=== PATIENT | female | born 1975 | race Caucasian/White ===

== ENCOUNTER 2018-02-17 11:32 | Emergency (ER) | payer OTHER, MEDICAID, SELFPAY ==
[2018-02-17 11:41] VITALS: BP 126/72; PULSE 75; RESP 16; TEMP 36.3; O2SAT 100; BMI 30.9
--- NOTE | 2018-02-17 12:02 | ED_ITS ---
HPI - Skin/Abscess/Foreign Bdy General Chief complaint: Skin/Abscess/Foreign Body Stated complaint: tooth pain Time Seen by Provider: 02/17/18 11:47 History of Present Illness HPI narrative: HPI 42-year-old female with poor dentition presents for evaluation of a few days of predominantly left mandibular dental pain that is without fevers, chills, neck stiffness, difficulty swallowing, headache, changes in vision or hearing. Patient reports that she has dental care scheduled in approximately 10 days to have her teeth extracted. M/S/F/SocHx notable for: please see HPI; remainder reviewed with patient and in chart. ROS: Negative constitutional, eye, cardiovascular, pulmonary, GI, , MSK, skin , neurologic, psychiatric, endocrine unless noted in the HPI. Exam Gen: Pleasant, non-toxic appearing, resting comfortably HEENT: NC, AT, PEERL, EOMI. Mouth: absent maxillary teeth with denture in place, mandibular job with molars and premolars absent, but appears to be the left first bicuspid is partially fractured, inferior gumline without swelling or market tenderness, floor of the mouth soft without swelling or tongue elevation, no peritonsilar swelling bilaterally, uvula midline, moist mucus membranes without lesions, tongue without plaques or lesions,gumline without significant ulcerations, no bleeding , no marked halitosis. Neck: Supple with a full range of motion, no swelling, no difficulty swallowing. Resp: Clear to auscultation bilaterally, normal work of breathing, no accessory muscle usage. Card: Regular rate and rhythm with no murmurs, rubs, or gallops, extremities warm and well perfused. GI: non-distended MSK: No visible deformities, strength and tone without visually appreciable deficit. Skin: Normal color with no visible lesions. Neuro: AO x 3, no facial asymmetry, vision and hearing WNL. Psych: Mood and affect appropriate. MDM Previous chart, nursing note, and vitals reviewed. A: 42-year-old female with poor dentition presents for evaluation of a few days of predominantly left mandibular dental pain that is without fevers, chills, neck stiffness, difficulty swallowing, headache, changes in vision or hearing. DDX: caries, pulpitis, gingivitis, periodontitis, periapical abscess, jaw osteomyelitis, Ludgwig's angina, acute necrotizing gingivitis. ED Course: patient dental pain, suspect secondary to likely small periapical abscess. The patient?s exam is without findings consistent with Oleg?s angina , nor were there evidence of clinically significant abscesses. The gumline was without gross abnormalities. The patient was instructed to use OTC pain medications, was prescribed 10 days of Amoxicillin 500 mg q8h and was provided with a list of low cost area dental services. Impression: Dental Pain (please reference below for remainder of encounter information) Related Data Home Medications Medication Instructions Recorded Confirmed albuterol sulfate [Ventolin HFA] 2 puff INH Q4HP PRN 02/17/18 budesonide-formoterol [Symbicort] 1 puff INHALATION DIRECTED 02/17/18 Previous Rx's Medication Instructions Recorded L norgest/e.estradiol-e.estrad 1 tab PO Q DAY #3 pac 09/24/17 [Seasonique] Allergies Allergy/AdvReac Type Severity Reaction Status Date / Time codeine [CODEINE] Allergy Unknown N/V/ Unverified 10/23/17 12:09 PASSES OUT. [facility] Surgical History Status post delivery (02/04/92) Status post delivery (10/10/07) Status post cone biopsy of cervix (10/01/14) Status post cone biopsy of cervix Family History Father Heart disease Grandmother Cervical cancer Mother Age: 69 History of artificial heart valve Essential hypertension High cholesterol Social History Smoking Status: Former smoker Exam Initial Vital Signs Initial Vital Signs: Vital Signs Temperature 97.4 F L 02/17/18 11:41 Pulse Rate 75 02/17/18 11:41 Respiratory Rate 16 02/17/18 11:41 Blood Pressure 126/72 H 02/17/18 11:41 Pulse Oximetry 100 02/17/18 11:41 Course Vital Signs - 8 hr 08/06/18 11:41 Temperature 97.4 F L Pulse Rate 75 Respiratory Rate 16 Blood Pressure 126/72 H Pulse Oximetry 100 Discharge Plan Departure Prescriptions: No Action L norgest/e.estradiol-e.estrad [Seasonique] 1 EACH tablets,dose pack,3 month 1 tab PO Q DAY Qty: 3 RF: 4 budesonide-formoterol [Symbicort] 80-4.5 mcg/actuation HFA aerosol inhaler 1 puff Inhalation DIRECTED RF: 0 albuterol sulfate [Ventolin HFA] 90 MCG/PUFF HFA aerosol inhaler 2 puff INH Q4HP PRN (Reason: Shortness Of Breath) RF: 0
== END 2018-02-17 12:24 | disposition home or self-care (01) ==
PROVIDERS: Emergency Provider Emergency Medicine
DX: K08.89 Other specified disorders of teeth and supporting structures (principal)
CPT/HCPCS: 99282